=== PATIENT | male | born 1965 | race Caucasian/White ===

== ENCOUNTER 2021-11-25 17:54 | Emergency (ER) | payer OTHER ==
[~2021-11-25] VITALS: Ht 175.3 cm; Wt 75.0 kg
[2021-11-25 18:02] VITALS: BP 129/85
[2021-11-25] MEDS ORDERED: BENZ11.95 TP (19:26)
[2021-11-25] MEDS ORDERED: IBUP-2070 PO (19:26)
== END 2021-11-25 19:33 | disposition home or self-care (01) ==
LOC: EMS 17:57
DX: K08.89 Other specified disorders of teeth and supporting structures (principal); F19.90 Other psychoactive substance use, unspecified, uncomplicated
CPT/HCPCS: 99282; Z7502